=== PATIENT | female | born 1950 | race Caucasian/White ===

== ENCOUNTER 2017-12-26 22:55 | Emergency (ER) | payer BC, MEDICARE ==
[2017-12-26 23:12] VITALS: BP 135/94
--- NOTE | 2017-12-26 23:46 | EDM.PDOC ---
ED HPI GENERAL MEDICAL PROBLEM - General Chief Complaint: Skin Complaint Stated Complaint: RASH ALL OVER BODY Time Seen by Provider: 12/26/17 23:13 Source of Information: Reports: Patient, RN Notes Reviewed History Limitations: Reports: No Limitations - History of Present Illness INITIAL COMMENTS - FREE TEXT/NARRATIVE: The patient states that she developed pruritus to her scalp 3-4 days ago. It then extended down behind her left ear and on to her left neck, and today is extended behind her right ear. She has also noticed a non-itchy rash under both of her breasts, and an itchy rash to her lateral right hip. No prior similar symptoms. The patient denies recent oral or lip swelling, dyspnea, and wheezing. The patient states that she was started on Jardiance on 12/17/2017. She states that she has been checking her blood sugar twice a day for the past 2 weeks, with a range of 150 to 280. The patient's PCP is Nava Phan, who has not been contacted about this issue. Generalized Pain Score (Numeric/FACES): 3 - Related Data Allergies Allergy/AdvReac Type Severity Reaction Status Date / Time codeine Allergy Rash Verified 12/11/15 19:09 Home Meds: Home Meds Lansoprazole [Prevacid] 15 mg PO DAILY 12/11/15 [History] Aspirin [Halfprin] 81 mg PO DAILY 12/26/17 [History] Empagliflozin [Jardiance] 10 mg PO DAILY 12/26/17 [History] Lisinopril/Hydrochlorothiazide [Lisinopril-Hctz 10-12.5 mg Tab] 10 - 12.5 mg PO DAILY 12/26/17 [History] Loratadine [Claritin] 10 mg PO DAILY 12/26/17 [History] metFORMIN [Glucophage XR] 1,000 mg PO DAILY 12/26/17 [History] Past Medical History HEENT History: Reports: Allergic Rhinitis Cardiovascular History: Reports: High Cholesterol (untreated), Hypertension Gastrointestinal History: Reports: GERD Musculoskeletal History: Reports: Fracture (right humerus) Endocrine/Metabolic History: Reports: Diabetes, Type II, Obesity/BMI 30+ - Past Surgical History HEENT Surgical History: Reports: Oral Surgery (wisdom teeth extraction) GI Surgical History: Reports: Appendectomy, Colonoscopy, EGD Female Surgical History: Reports: Section (x 2), Hysterectomy, Salpingo-Oophorectomy, Tubal Ligation Oncologic Surgical History: Reports: Biopsy of Breast (right) Social & Family History - Family History Family Medical History: Noncontributory - Tobacco Use Smoking Status *Q: Former Smoker Years of Tobacco use: 24 Packs/Tins Daily: 1 Month/Year Tobacco Last Used: Quit mid - Alcohol Use Alcohol Use History: No - Recreational Drug Use Recreational Drug Use: No - Living Situation & Occupation Living situation: Reports: , with Spouse, with Family (Granddaughter) Occupation: Retired ED ROS GENERAL - Review of Systems Review Of Systems: ROS reveals no pertinent complaints other than HPI. ED EXAM, SKIN/RASH Exam: See Below Exam Limited By: No Limitations General Appearance: Alert, WD/WN, No Apparent Distress Eye Exam: Bilateral Eye: EOMI, Normal Inspection Ears: Normal External Exam, Normal Canal, Hearing Grossly Normal, Normal TMs Nose: Normal Inspection, Normal Mucosa, No Blood Throat/Mouth: Normal Inspection, Normal Lips, Normal Teeth, Normal Gums, Normal Oropharynx, Normal Voice, No Airway Compromise Head: Atraumatic, Normocephalic Neck: Normal Inspection, Supple, Non-Tender, Full Range of Motion. No: Lymphadenopathy (L), Lymphadenopathy (R) Respiratory/Chest: No Respiratory Distress, Lungs Clear, Normal Breath Sounds, No Accessory Muscle Use. No: Crackles, Rhonchi, Wheezing Cardiovascular: Normal Peripheral Pulses, Regular Rate, Rhythm, No Gallop, No JVD, No Murmur, No Rub Peripheral Pulses: 4+: Radial (L), Radial (R) GI/Abdominal: Normal Bowel Sounds, Soft, Non-Tender, No Organomegaly, No Distention, No Abnormal Bruit, No Mass, Other (Obese) (Female) Exam: Deferred Rectal (Female) Exam: Deferred Back Exam: Normal Inspection, Full Range of Motion, NT Extremities: Normal Inspection, Normal Range of Motion, No Pedal Edema, Normal Capillary Refill Neurological: Alert, Oriented, Normal Cognition, No Motor/Sensory Deficits Psychiatric: Normal Affect Skin: Warm, Dry, Intact, Normal Color, Other (The patient's scalp is generally erythematous, without distinct rash. There is a raised erythematous rash in patches noted posterior to the patient's left and right ears, and extending slightly down the left lateral aspect of the patient's neck. A similar- appearing rashes noted to the lateral aspect of the patient's right buttock. A dissimilar-appearing non-raised erythematous rash is noted to the bilateral intertriginous areas under the patient's breasts.) Lymphatic: No Adenopathy Course - Vital Signs Last Recorded V/S: Last Vital Signs Temp 36.4 C 12/26/17 23:10 Pulse 105 H 12/26/17 23:10 Resp 20 12/26/17 23:10 BP 135/94 H 12/26/17 23:10 Pulse Ox 96 12/26/17 23:10 - Re-Assessments/Exams Free Text/Narrative Re-Assessment/Exam: 12/26/17 23:40 The cause of the patient's pruritic rash is unclear, but could be related to one of the medications that she is taking or, alternately, a food, or, alternatively, even a contact dermatitis. Ordinarily, I would prescribe prednisone, however, in this case, I don't believe that the patient is in a position to adequately control her elevated blood sugar. Since she has no other signs of an allergic reaction, such as angioedema, dyspnea, or wheezing, I don' t believe that it would be in the patient's best interest to start her on steroids tonight (Friday). I would prefer that the patient follow-up with her PCP, Nava Phan, on 12/29/2017, at which time she can be started on steroids as well as have her blood sugar closely monitored and treated as necessary. The patient is in agreement. In the meantime, I'm recommending that the patient bathe in as cool water as she can tolerate, and take a stronger antihistamine, either Benadryl, Zyrtec, or Gladys. Departure - Departure Time of Disposition: 23:42 Disposition: Home, Self-Care 01 Condition: Good Clinical Impression: Pruritic erythematous rash - Discharge Information *PRESCRIPTION DRUG MONITORING PROGRAM REVIEWED*: Not Applicable *COPY OF PRESCRIPTION DRUG MONITORING REPORT IN PATIENT COREY: Not Applicable Referrals: Nava Phan PA-C [Primary Care Provider] - Additional Instructions: You were seen in the emergency room for an itchy red rash. The cause of your rash is unclear, but could be related to a medicine, food, or even a contact dermatitis, such as to poison lillian. Ordinarily, you would be treated with an oral steroid, however, since that would cause your blood sugar to go very high, and there is no way for us to monitor your blood sugar over the weekend, we have elected to delay such treatment until you follow-up with your PCP, Nava Phan, on Friday, 2017. She can not only prescribe some steroids, but closely monitor your blood sugar, as well. In the meantime, try to bathe in as cool water as you can tolerate, because heat will tend to worsen the itchiness. Consider switching your Claritin to a stronger antihistamine such as Benadryl ( which will cause drowsiness), Zyrtec, or Gladys. If any other problems, please do not hesitate to return to the ER.
== END 2017-12-26 23:55 | disposition home or self-care (01) ==
LOC: JD.ED 22:55
DX: L29.9 Pruritus, unspecified (principal); I10 Essential (primary) hypertension; E78.00 Pure hypercholesterolemia, unspecified; E11.9 Type 2 diabetes mellitus without complications; Z87.891 Personal history of nicotine dependence; Z79.82 Long term (current) use of aspirin; Z79.84 Long term (current) use of oral hypoglycemic drugs; Z79.899 Other long term (current) drug therapy; Z88.5 Allergy status to narcotic agent
CPT/HCPCS: 99282; 99283

== ENCOUNTER 2018-01-05 15:14 | Emergency (ER) | payer BC, MEDICARE ==
--- NOTE | 2018-01-05 16:00 | EDM.PDOC ---
ED HPI GENERAL MEDICAL PROBLEM - General Chief Complaint: Allergic Reaction Stated Complaint: DIFFICULTY SWALLOWING/ VISION BLURRY Time Seen by Provider: 01/05/18 15:35 Source of Information: Reports: Patient, Family (), RN Notes Reviewed History Limitations: Reports: No Limitations - History of Present Illness INITIAL COMMENTS - FREE TEXT/NARRATIVE: The patient states that she receives both an influenza and shingles vaccination around 10:00 this morning at [facility]'s office. The patient underwent a subsequent blood draw, then went home. She states that she took a nap from around noon until 14:00, but when she woke, both of her eyes felt itchy, the back of her throat felt swollen, and she had difficulty swallowing. She states that she had shortness of breath, but was not wheezing. There was no rash, nor any pruritus. No prior similar symptoms. - Related Data Allergies Allergy/AdvReac Type Severity Reaction Status Date / Time codeine Allergy Rash Verified 12/11/15 19:09 Home Meds: Home Meds Lansoprazole [Prevacid] 15 mg PO DAILY 12/11/15 [History] Aspirin [Halfprin] 81 mg PO DAILY 12/26/17 [History] Empagliflozin [Jardiance] 10 mg PO DAILY 12/26/17 [History] Lisinopril/Hydrochlorothiazide [Lisinopril-Hctz 10-12.5 mg Tab] 10 - 12.5 mg PO DAILY 12/26/17 [History] Loratadine [Claritin] 10 mg PO DAILY 12/26/17 [History] metFORMIN [Glucophage XR] 1,000 mg PO DAILY 12/26/17 [History] Cetirizine [ZyrTEC] 10 mg PO DAILY 01/05/18 [History] Chlosterol 01/05/18 [History] Past Medical History HEENT History: Reports: Allergic Rhinitis Cardiovascular History: Reports: High Cholesterol (untreated), Hypertension Gastrointestinal History: Reports: GERD, Other (See Below) Musculoskeletal History: Reports: Fracture (right humerus) Endocrine/Metabolic History: Reports: Diabetes, Type II, Obesity/BMI 30+ - Infectious Disease History Infectious Disease History: Reports: Chicken Pox, Influenza, Measles, Mumps - Past Surgical History HEENT Surgical History: Reports: Oral Surgery (wisdom teeth extraction) GI Surgical History: Reports: Appendectomy, Colonoscopy, EGD Female Surgical History: Reports: Section (x 2), Hysterectomy, Salpingo-Oophorectomy, Tubal Ligation Oncologic Surgical History: Reports: Biopsy of Breast (right) Social & Family History - Family History Family Medical History: Noncontributory - Tobacco Use Smoking Status *Q: Former Smoker Years of Tobacco use: 24 Packs/Tins Daily: 1 Month/Year Tobacco Last Used: Quit mid-s - Caffeine Use Caffeine Use: Reports: Soda - Alcohol Use Alcohol Use History: No - Recreational Drug Use Recreational Drug Use: No - Living Situation & Occupation Living situation: Reports: , with Spouse, with Family (Granddaughter) Occupation: Retired ED ROS ALLERGIC REACTION - Review of Systems Review Of Systems: ROS reveals no pertinent complaints other than HPI. ED EXAM GENERAL NO PERIP PULSE - Physical Exam Exam: See Below Exam Limited By: No Limitations General Appearance: Alert, WD/WN, No Apparent Distress Eye Exam: Bilateral Eye: EOMI, Other (Injection of the sclera only where the eyes are open - examination of the remainder of the globe finds no significant injection) Ears: Normal External Exam, Normal Canal, Hearing Grossly Normal, Normal TMs Nose: Normal Inspection, Normal Mucosa, No Blood Throat/Mouth: Normal Inspection, Normal Lips, Normal Teeth, Normal Gums, Normal Oropharynx (No uvular swelling), Normal Voice, No Airway Compromise Head: Atraumatic, Normocephalic Neck: Normal Inspection, Supple, Non-Tender, Full Range of Motion. No: Lymphadenopathy (L), Lymphadenopathy (R) Respiratory/Chest: No Respiratory Distress, Lungs Clear, Normal Breath Sounds, No Accessory Muscle Use. No: Decreased Breath Sounds, Crackles, Rhonchi, Wheezing, Prolonged Expiration Cardiovascular: Normal Peripheral Pulses, Regular Rate, Rhythm, No Gallop, No JVD, No Murmur, No Rub GI/Abdominal: Normal Bowel Sounds, Soft, Non-Tender, No Organomegaly, No Distention, No Abnormal Bruit, No Mass, Other (Obese) (Female) Exam: Deferred Rectal (Female) Exam: Deferred Back Exam: Normal Inspection, Full Range of Motion, NT Extremities: Normal Inspection, Normal Range of Motion, No Pedal Edema, Normal Capillary Refill Neurological: Alert, Oriented, Normal Cognition, No Motor/Sensory Deficits Psychiatric: Normal Affect Skin Exam: Warm, Dry, Intact, Normal Color, No Rash Course - Vital Signs Last Recorded V/S: Last Vital Signs Temp 36.6 C 01/05/18 16:21 Pulse 108 H 01/05/18 16:21 Resp 18 01/05/18 16:21 BP 135/80 01/05/18 16:21 Pulse Ox 100 01/05/18 16:21 - Re-Assessments/Exams Free Text/Narrative Re-Assessment/Exam: 01/05/18 15:58 The patient does not appear to be experiencing an allergic reaction. Her eyes are itchy, but they are injected only in the areas uncovered by her eyelids, without significant injection to the remainder of her globes. She feels like her throat is swollen, and has difficulty swallowing, however, on examination, there is no oropharyngeal or uvular swelling. While she reports dyspnea, I hear no wheezing whatsoever on auscultation of her lungs, and, as above, she has no pruritus or visible rash. I therefore do not see an indication for treatment with steroids. This was explained to the patient and her , who appear to understand. Departure - Departure Time of Disposition: 16:00 Disposition: Home, Self-Care 01 Condition: Good Clinical Impression: Conjunctivitis - Discharge Information *PRESCRIPTION DRUG MONITORING PROGRAM REVIEWED*: Not Applicable *COPY OF PRESCRIPTION DRUG MONITORING REPORT IN PATIENT COREY: Not Applicable Referrals: Nava Phan PA-C [Primary Care Provider] - Forms: ED Department Discharge Additional Instructions: You were seen in the emergency room for itchy eyes, feeling of swelling in the back of her throat with difficulty swallowing, and shortness of breath, that all developed after receiving an influenza and shingles vaccine. On physical examination, you appear to have some conjunctivitis, but no findings consistent with allergic reaction. Your symptoms are most likely due to a reaction to environmental exposure. If your symptoms persist, please follow-up with your PCP, Nava Phan. If any other problems, please do not hesitate to return to the ER.
[2018-01-05 16:23] VITALS: BP 135/80
== END 2018-01-05 16:20 | disposition home or self-care (01) ==
LOC: JD.ED 15:14
DX: H10.9 Unspecified conjunctivitis (principal); I10 Essential (primary) hypertension; E11.9 Type 2 diabetes mellitus without complications; E66.9 Obesity, unspecified; Z87.891 Personal history of nicotine dependence; Z88.5 Allergy status to narcotic agent; Z79.82 Long term (current) use of aspirin; Z79.84 Long term (current) use of oral hypoglycemic drugs; Z79.899 Other long term (current) drug therapy
CPT/HCPCS: 99282; 99284

== ENCOUNTER 2021-02-20 08:22 | Day surgery (SDC) | payer MEDICARE, BC ==
[~2021-02-20 08:22] MED LIST: Cefuroxime 10 MG/ML SYRINGE EYERT SCH; Lidocaine 1% PF 2 ML SDV INJECT SCH; Pilocarpine 4% Ophth Soln 15 ML Bot EYERT SCH
--- NOTE | 2021-02-20 09:24 | PCM.PREANE ---
Preanesthetic Assessment - Procedure Proposed Procedure: Right eye cataract extraction with IOP - Anesthesia/Transfusion/Family Hx Anesthesia History: Prior Anesthesia Without Reaction Family History of Anesthesia Reaction: No Transfusion History: No Prior Transfusion(s) - Review of Systems General: No Symptoms Pulmonary: No Symptoms, Other (asthma) Cardiovascular: No Symptoms, Other (HTN) Gastrointestinal: No Symptoms Neurological: No Symptoms Other: Reports: Diabetes - Physical Assessment NPO Status Date: 02/20/21 NPO Status Time: 00:05 Vital Signs: Last Vital Signs Temp 97.8 F 02/20/21 08:45 Pulse 96 02/20/21 08:45 Resp 16 02/20/21 08:45 BP 134/80 02/20/21 08:45 Pulse Ox 96 02/20/21 08:45 Weight: 83.007 kg ASA Class: 2 Mental Status: Alert & Oriented x3 Dentition: Reports: Normal Dentition, Dentures (upper) Thyro-Mental Finger Breadths: 3 Mouth Opening Finger Breadths: 3 ROM/Head Extension: Full Lungs: Clear to Auscultation, Normal Respiratory Effort Cardiovascular: Regular Rate, Regular Rhythm - Lab Values: Laboratory Last Values POC Glucose 118 mg/dL (70-99) H 02/20/21 08:55 - Allergies Allergies/Adverse Reactions: Allergies Allergy/AdvReac Type Severity Reaction Status Date / Time codeine Allergy Rash Verified 02/20/21 09:01 - Blood Blood Available: No Product(s) Available: None - Acknowledgements Anesthesia Type Planned: MAC Pt an Appropriate Candidate for the Planned Anesthesia: Yes Alternatives and Risks of Anesthesia Discussed w Pt/Guardian: Yes Pt/Guardian Understands and Agrees with Anesthesia Plan: Yes PreAnesthesia Questionnaire HEENT History: Reports: Allergic Rhinitis Cardiovascular History: Reports: High Cholesterol (untreated), Hypertension Respiratory History: Reports: Asthma Gastrointestinal History: Reports: GERD, Other (See Below) Other Gastrointestinal History: ulcer in small intestine Musculoskeletal History: Reports: Fracture (right humerus) Other Musculoskeletal History: osteopenia Endocrine/Metabolic History: Reports: Diabetes, Type II, Obesity/BMI 30+ Dermatologic History: Reports: Urticaria - Infectious Disease History Infectious Disease History: Reports: Chicken Pox, Influenza, Measles, Mumps - Past Surgical History HEENT Surgical History: Reports: Oral Surgery (wisdom teeth extraction) GI Surgical History: Reports: Appendectomy, Colonoscopy, EGD Female Surgical History: Reports: Section (x 2), Hysterectomy, Salpingo-Oophorectomy, Tubal Ligation Oncologic Surgical History: Reports: Biopsy of Breast (right) - HOME MEDS Home Medications: Home Meds Lansoprazole [Prevacid] 15 mg PO DAILY 12/11/15 [History] Aspirin [Halfprin] 81 mg PO DAILY 12/26/17 [History] Lisinopril/Hydrochlorothiazide [Lisinopril-Hctz 10-12.5 mg Tab] 10 - 12.5 mg PO DAILY 12/26/17 [History] metFORMIN [Glucophage XR] 1,000 mg PO DAILY 12/26/17 [History] Cetirizine [ZyrTEC] 10 mg PO DAILY 01/05/18 [History] Rosuvastatin Calcium [Crestor] 40 mg PO DAILY 02/20/21 [History] - CURRENT (IN HOUSE) MEDS Current Meds: Current Medications Brimonidine Tartrate (Brimonidine 0.2% Ophth Soln 5 Ml Bottle) 0 ml EYERT ASDIRECTED KULWINDER Stop: 02/20/21 18:00 Cefuroxime Sodium (Cefuroxime 10 Mg/Ml Syringe) 0 mg EYERT ASDIRECTED KULWINDER Stop: 02/20/21 18:00 Lidocaine HCl (Lidocaine 1% Pf 2 Ml Sdv) 0 ml INJECT ASDIRECTED KULWINDER Stop: 02/20/21 18:00 Phenylephrine HCl (Phenylephrine 2.5% Ophth Soln 2 Ml Bot) 0 ml EYERT ASDIRECTED KULWINDER Stop: 02/20/21 18:00 Pilocarpine HCl (Pilocarpine 4% Ophth Soln 15 Ml Bot) 0 ml EYERT ASDIRECTED KULWINDER Stop: 02/20/21 18:00 Polymyxin/Trimethoprim Sulfate (Polymyxin B/Trimethoprim 10 Ml Bottle) 0 ml EYERT ASDIRECTED KULWINDER Stop: 02/20/21 18:00 Tetracaine HCl (Tetracaine Hcl/Pf 0.5% 4 Ml Bottle) 0 ml EYEBOTH ASDIRECTED KULWINDER Stop: 02/20/21 18:00 Tropicamide (Tropicamide 1% Ophth Soln 15 Ml Bottle) 0 ml EYERT ASDIRECTED KULWINDER Stop: 02/20/21 18:00
[2021-02-20] MEDS: Polymyxin B/Trimethoprim 10 ML Bottle EYERT SCH ×3 (09:25→10:49)
[2021-02-20] MEDS: Brimonidine 0.2% Ophth Soln 5 ML Bottle EYERT SCH ×3 (09:30→10:49)
[2021-02-20] MEDS: Phenylephrine 2.5% Ophth Soln 2 ML Bot EYERT SCH ×5 (09:35→10:27)
[2021-02-20] MEDS: Tropicamide 1% Ophth Soln 15 ML Bottle EYERT SCH ×4 (09:40→10:17)
[2021-02-20] MEDS: Tetracaine HCl/PF 0.5% 4 ML Bottle EYEBOTH SCH ×4 (10:21→10:35)
--- NOTE | 2021-02-20 10:50 | PCM48HPAN ---
Post Anesthesia Note - EVALUATION WITHIN 48HRS OF ANESTHETIC Vital Signs in Normal Range: Yes Patient Participated in Evaluation: Yes Respiratory Function Stable: Yes Airway Patent: Yes Cardiovascular Function Stable: Yes Hydration Status Stable: Yes Pain Control Satisfactory: Yes Nausea and Vomiting Control Satisfactory: Yes Mental Status Recovered: Yes Vital Signs: Last Vital Signs Temp 36.6 C 02/20/21 08:45 Pulse 96 02/20/21 08:45 Resp 16 02/20/21 08:45 BP 134/80 02/20/21 08:45 Pulse Ox 96 02/20/21 08:45
[2021-02-20 11:00] VITALS: BP 118/82; PULSE 84
== END 2021-02-20 10:59 | disposition home or self-care (01) ==
LOC: JD.SDS 08:22
PROVIDERS: ATTEND Ophthalmology
DX: E11.36 Type 2 diabetes mellitus with diabetic cataract (principal); H25.813 Combined forms of age-related cataract, bilateral; H35.3131 Nonexudative age-related macular degeneration, bilateral, early dry stage; H16.103 Unspecified superficial keratitis, bilateral; H16.223 Keratoconjunctivitis sicca, not specified as Sjogren's, bilateral; E78.00 Pure hypercholesterolemia, unspecified; I10 Essential (primary) hypertension; Z90.49 Acquired absence of other specified parts of digestive tract; Z98.890 Other specified postprocedural states; Z79.82 Long term (current) use of aspirin; Z79.899 Other long term (current) drug therapy; Z79.84 Long term (current) use of oral hypoglycemic drugs; Z88.5 Allergy status to narcotic agent
CPT/HCPCS: 66984; 82947; J0697; C1780

== ENCOUNTER 2021-03-06 06:57 | Day surgery (SDC) | payer MEDICARE, BC ==
[2021-03-06] MEDS: Polymyxin B/Trimethoprim 10 ML Bottle EYELF SCH ×4 (07:13→08:38)
[2021-03-06] MEDS: Brimonidine 0.2% Ophth Soln 5 ML Bottle EYELF SCH ×4 (07:17→08:38)
[2021-03-06] MEDS: Phenylephrine 2.5% Ophth Soln 2 ML Bot EYELF SCH ×6 (07:21→08:18)
[2021-03-06] MEDS: Tetracaine HCl/PF 0.5% 4 ML Bottle EYEBOTH SCH ×3 (07:23→08:26)
[2021-03-06] MEDS: Pilocarpine 4% Ophth Soln 15 ML Bot EYELF SCH ×2 (07:24→08:38)
[2021-03-06] MEDS: Lidocaine 1% PF 2 ML SDV INJECT SCH ×2 (07:24→08:27)
[2021-03-06] MEDS: Cefuroxime 10 MG/ML SYRINGE EYELF SCH ×2 (07:24→08:37)
[2021-03-06] MEDS: Tropicamide 1% Ophth Soln 15 ML Bottle EYELF SCH ×4 (07:26→07:59)
--- NOTE | 2021-03-06 07:33 | PCM.PREANE ---
Preanesthetic Assessment - Anesthesia/Transfusion/Family Hx Anesthesia History: Prior Anesthesia Without Reaction Family History of Anesthesia Reaction: No Transfusion History: No Prior Transfusion(s) - Review of Systems General: No Symptoms Pulmonary: Other (asthma) Cardiovascular: Other (HTn) Gastrointestinal: No Symptoms Other: Reports: Diabetes (non insulin 122) - Physical Assessment NPO Status Date: 03/05/21 NPO Status Time: 23:30 Vital Signs: Last Vital Signs Temp 36.7 C 03/06/21 07:05 Pulse 92 03/06/21 07:05 Resp 16 03/06/21 07:05 BP 127/67 03/06/21 07:05 Pulse Ox 97 03/06/21 07:05 Height: 1.6 m Weight: 83.007 kg ASA Class: 3 Mental Status: Alert & Oriented x3 Airway Class: Mallampati = 2 Dentition: Reports: Normal Dentition, Dentures, Edentulous (upper) Thyro-Mental Finger Breadths: 3 Mouth Opening Finger Breadths: 3 ROM/Head Extension: Full Lungs: Clear to Auscultation, Normal Respiratory Effort Cardiovascular: Regular Rate, Regular Rhythm - Lab Values: Laboratory Last Values POC Glucose 122 mg/dL (70-99) H 03/06/21 07:07 - Allergies Allergies/Adverse Reactions: Allergies Allergy/AdvReac Type Severity Reaction Status Date / Time codeine Allergy Rash Verified 03/06/21 07:14 - Blood Blood Available: Yes - Anesthesia Plan Pre-Op Medication Ordered: None - Acknowledgements Anesthesia Type Planned: MAC Pt an Appropriate Candidate for the Planned Anesthesia: Yes Alternatives and Risks of Anesthesia Discussed w Pt/Guardian: Yes Pt/Guardian Understands and Agrees with Anesthesia Plan: Yes PreAnesthesia Questionnaire HEENT History: Reports: Allergic Rhinitis Cardiovascular History: Reports: High Cholesterol (untreated), Hypertension Respiratory History: Reports: Asthma Gastrointestinal History: Reports: GERD, Other (See Below) Other Gastrointestinal History: ulcer in small intestine Musculoskeletal History: Reports: Fracture (right humerus) Other Musculoskeletal History: osteopenia Endocrine/Metabolic History: Reports: Diabetes, Type II, Obesity/BMI 30+ Dermatologic History: Reports: Urticaria - Infectious Disease History Infectious Disease History: Reports: Chicken Pox, Influenza, Measles, Mumps - Past Surgical History HEENT Surgical History: Reports: Oral Surgery (wisdom teeth extraction) GI Surgical History: Reports: Appendectomy, Colonoscopy, EGD Female Surgical History: Reports: Section (x 2), Hysterectomy, Salpingo-Oophorectomy, Tubal Ligation Oncologic Surgical History: Reports: Biopsy of Breast (right) - HOME MEDS Home Medications: Home Meds Lansoprazole [Prevacid] 15 mg PO DAILY 12/11/15 [History] Aspirin [Halfprin] 81 mg PO DAILY 12/26/17 [History] Lisinopril/Hydrochlorothiazide [Lisinopril-Hctz 10-12.5 mg Tab] 10 - 12.5 mg PO DAILY 12/26/17 [History] metFORMIN [Glucophage XR] 1,000 mg PO DAILY 12/26/17 [History] Cetirizine [ZyrTEC] 10 mg PO DAILY 01/05/18 [History] Rosuvastatin Calcium [Crestor] 40 mg PO DAILY 02/20/21 [History] - CURRENT (IN HOUSE) MEDS Current Meds: Current Medications Brimonidine Tartrate (Brimonidine 0.2% Ophth Soln 5 Ml Bottle) 0 ml EYELF ASDIRECTED KULWINDER Stop: 03/06/21 16:00 Last Admin: 03/06/21 07:24 Dose: 1 ml Documented by: Cefuroxime Sodium (Cefuroxime 10 Mg/Ml Syringe) 0 mg EYELF ASDIRECTED KULWINDER Stop: 03/06/21 16:00 Last Admin: 03/06/21 07:24 Dose: 1 mg Documented by: Lidocaine HCl (Lidocaine 1% Pf 2 Ml Sdv) 0 ml INJECT ASDIRECTED KULWINDER Stop: 03/06/21 16:00 Last Admin: 03/06/21 07:24 Dose: 1 ml Documented by: Phenylephrine HCl (Phenylephrine 2.5% Ophth Soln 2 Ml Bot) 0 ml EYELF ASDIRECTED KULWINDER Stop: 03/06/21 16:00 Last Admin: 03/06/21 07:22 Dose: 1 ml Documented by: Pilocarpine HCl (Pilocarpine 4% Ophth Soln 15 Ml Bot) 0 ml EYELF ASDIRECTED KULWINDER Stop: 03/06/21 16:00 Last Admin: 03/06/21 07:24 Dose: 1 ml Documented by: Polymyxin/Trimethoprim Sulfate (Polymyxin B/Trimethoprim 10 Ml Bottle) 0 ml EYELF ASDIRECTED KULWINDER Stop: 03/06/21 16:00 Last Admin: 03/06/21 07:24 Dose: 1 ml Documented by: Tetracaine HCl (Tetracaine Hcl/Pf 0.5% 4 Ml Bottle) 0 ml EYEBOTH ASDIRECTED KULWINDER Stop: 03/06/21 16:00 Last Admin: 03/06/21 07:23 Dose: 1 ml Documented by: Tropicamide (Tropicamide 1% Ophth Soln 15 Ml Bottle) 0 ml EYELF ASDIRECTED KULWINDER Stop: 03/06/21 16:00 Last Admin: 03/06/21 07:26 Dose: 1 drop Documented by:
[2021-03-06 08:48] VITALS: BP 116/69; PULSE 88
--- NOTE | 2021-03-06 09:06 | PCM48HPAN ---
Post Anesthesia Note - EVALUATION WITHIN 48HRS OF ANESTHETIC Vital Signs in Normal Range: Yes Patient Participated in Evaluation: Yes Respiratory Function Stable: Yes Airway Patent: Yes Cardiovascular Function Stable: Yes Hydration Status Stable: Yes Pain Control Satisfactory: Yes Nausea and Vomiting Control Satisfactory: Yes Mental Status Recovered: Yes Vital Signs: Last Vital Signs Temp 36.6 C 03/06/21 08:39 Pulse 88 03/06/21 08:39 Resp 17 03/06/21 08:39 BP 116/69 03/06/21 08:39 Pulse Ox 97 03/06/21 08:39
== END 2021-03-06 08:45 | disposition home or self-care (01) ==
LOC: JD.SDS 06:57
PROVIDERS: ATTEND Ophthalmology
DX: E11.36 Type 2 diabetes mellitus with diabetic cataract (principal); H25.812 Combined forms of age-related cataract, left eye; H16.223 Keratoconjunctivitis sicca, not specified as Sjogren's, bilateral; H35.3131 Nonexudative age-related macular degeneration, bilateral, early dry stage; J45.909 Unspecified asthma, uncomplicated; E78.00 Pure hypercholesterolemia, unspecified; I10 Essential (primary) hypertension; Z98.890 Other specified postprocedural states; Z79.899 Other long term (current) drug therapy; Z79.82 Long term (current) use of aspirin; Z79.84 Long term (current) use of oral hypoglycemic drugs; Z88.5 Allergy status to narcotic agent; Z96.1 Presence of intraocular lens
CPT/HCPCS: 66984; 82947; J0697; C1780